=== PATIENT | female | born 1985 | race African-American/Black ===

== ENCOUNTER 2017-08-29 21:45 | Emergency (ER) | payer OTHER, MEDICAID ==
[~2017-08-29] VITALS: Ht 157.5 cm; Wt 111.0 kg
[2017-08-30] MEDS ORDERED: IBUPROFEN 600MG TABLET PO ONE (01:15)
[2017-08-30 01:35] VITALS: BP 137/78
== END 2017-08-30 02:20 | disposition home or self-care (01) ==
LOC: ER 21:45
DX: M25.511 Pain in right shoulder (principal); V49.49XA Driver injured in collision with other motor vehicles in traffic accident, initial encounter; Y93.89 Activity, other specified; Y92.410 Unspecified street and highway as the place of occurrence of the external cause
CPT/HCPCS: 73030; 81025; 99284

== ENCOUNTER 2022-09-17 18:39 | Emergency (ER) | payer MEDICAID ==
[~2022-09-17] VITALS: Ht 160 cm; Wt 90.0 kg
[~2022-09-17 18:39] MED LIST: CEPH500C2 MT
[2022-09-17 18:52] VITALS: BP 139/103
== END 2022-09-17 21:00 | disposition left against medical advice (07) ==
LOC: ER 18:39
DX: Z53.21 Procedure and treatment not carried out due to patient leaving prior to being seen by health care provider (principal); Z98.890 Other specified postprocedural states
CPT/HCPCS: Z7610 ×4